=== PATIENT | female | born 1965 | race African-American/Black ===

== ENCOUNTER 2021-08-16 12:45 | Emergency (ER) | payer OTHER ==
[~2021-08-16] VITALS: Ht 152.4 cm; Wt 88.6 kg
[~2021-08-16 12:45] MED LIST: AMLO10TA4 PO; HYDR-2145 PO
[2021-08-16 14:11] VITALS: BP 171/93
[2021-08-16] MEDS ORDERED: FLUORESCEIN OPHTH TEST STRIP. OS ONE (17:45)
[2021-08-16] MEDS ORDERED: MINERAL OIL/PETROLATUM,WHITE OPHTH OINT 3.5GM TUBE. OU ONE (17:45)
[2021-08-16] MEDS ORDERED: PROPARACAINE 0.5% OPHTH SOLUTION 15ML BOTTLE. OS ONE (17:45)
--- NOTE | 2021-08-16 17:46 | PHYS DOC ---
Past Medical History Past Medical History: Hypertension (ROBER LYON) Past Surgical History: No Surgical History (ROBER LYON) Alcohol Use: None Drug Use: None (ROBER LYON) General Adult EDM: Chief Complaint: FACE PROBLEM HPI: HPI: Patient is a 56 year old hypertensive female who presents with left-sided facial weakness. Patient states that 5 days ago, her right eye began watering. Progressively, she has become more weak on the left side of her face. Patient is unable to fully close her eyelid or move the left side of her mouth. She denies any pain, paresthesias, visual field deficits, or other body involvement including upper extremities and lower extremities. (ROBER LYON) Review of Systems: Review of Systems: Constitutional: Denies fever, chills or generalized weakness Eyes: See HPI HENT: Denies ear pain, nasal congestion or sore throat Respiratory: Denies cough or shortness of breath Cardiovascular: Denies chest pain, palpitations or edema GI: Denies abdominal pain, nausea, vomiting, bloody stools or diarrhea : Denies dysuria or hematuria Musculoskeletal: Denies back pain or joint pain Integument: Denies rash or other skin lesion Neurologic: See HPI (ROBER LYON) Heart Score: C/O Chest Pain: No (ROBER LYON) Allergies: Allergies: Allergies Coded Allergies Type Severity Reaction Last Updated Verified No Known Drug Allergies 12/07/13 No (ROBER LYON) Physical Exam: PE: Constitutional: Well developed, well nourished, no acute distress, non-toxic appearance. HENT: Left-sided facial droop appreciated, muscle weakness appreciated from forehead extending inferiorly to perioral region, atraumatic, bilateral external ears without deformity or discharge, oropharynx moist, no oral exudates, tongue is midline without fasciculations, nose without deformity or discharge. Eyes: PERRLA, EOMI, conjunctiva normal, left eye with scleral injection and some minimal watery drainage, globe of left eye rotates upward and outward when patient attempts to close eyes. Fluorescein stain and [place] lamp exam does not reveal any corneal or scleral abrasions. Neck: Normal range of motion, no tenderness, supple, no stridor, symmetrical elevation and depression of hyoid bone on swallowing. Cardiovascular: Heart rate regular rhythm, no murmur. Lungs & Thorax: Bilateral breath sounds clear to auscultation. Skin: Warm, dry, no erythema, no rash. Neurologic: Alert and oriented x4, senior technical architect strength 5/5 bilaterally, steady and symmetrical gait, sensory function grossly intact, no focal deficits noted. (ROBER LYON) Current Patient Data: Vital Signs: Vital Signs Date Time Temp Pulse Resp B/P (MAP) Pulse Ox O2 Delivery O2 Flow Rate FiO2 08/16/21 14:11 97.8 70 12 171/93 (119) 99 Room Air 97.8 (ROBER LYON) Course & Med Decision Making: Course & Med Decision Making Pertinent Labs and Imaging studies reviewed. (See chart for details) Patient is a 56-year-old female with history of hypertension who presents with 5 days of left-sided facial weakness. History and presentation is consistent with facial nerve palsy. Patient presents with near complete paralysis at this point will be treated with artificial tears, prednisone taper as well as antiviral medication. Patient is given instruction to follow-up with both her primary care provider and ophthalmology. Patient understands and is agreeable to discharge plan. (ROBER LYON) Dragon Disclaimer: Dragon Disclaimer: This electronic medical record was generated, in whole or in part, using a voice recognition dictation system. (ROBER LYON) Departure Departure Impression: Primary Impression: Facial paralysis/[place] palsy Disposition: HOME / SELF CARE / HOMELESS Condition: STABLE Referrals: NO PCP (PCP) Patient Instructions: Reeves's Palsy-Brief Additional Instructions: Follow up with ophthalmology. Call to schedule an appointment. Take the medications as prescribed. You may also purchase over the counter artificial tears to keep the eye moist. Tape the eyelid down when you sleep to prevent further dryness/damage. Return to the department if you have any new symptoms or develop new ones. Scripts Valacyclovir Hcl (VALACYCLOVIR) 500 Mg Tablet 1 TAB PO BID for 7 Days, #14 TAB 0 Refills Prov: ROBER LYON 08/16/21 Prednisone (PREDNISONE) 20 Mg Tablet 1 TAB PO UD for 10 Days, #23 TAB Take 3 tablets by mouth once per day for days 1 through 5. Take 2.5 tablets by mouth once per day on day 6. Take 2 tablets by mouth once per day on day 7. Take 1.5 tablets by mouth once per day on day 8. Take 1 tablet by mouth once per day on day 9 and 10. Prov: ROBER LYON 08/16/21 Attending Signature Attending Signature I have reviewed the PA/MACHINE SHOP HELPER's note and plan of care. I was available for consu ltation as needed during the patient's visit in the emergency department. I agree with the clinical impression, plan, and disposition. (MICHELLE ADAMS DO) ROBER LYON Aug 16, 2021 17:46 MICHELLE ADAMS DO Aug 17, 2021 18:26
[2021-08-16] MEDS ORDERED: VALA500T9 PO (18:28)
[2021-08-16] MEDS ORDERED: PRED20TA PO (18:28)
== END 2021-08-16 18:35 | disposition home or self-care (01) ==
LOC: ER 12:45
DX: G51.0 Bell's palsy (principal); I10 Essential (primary) hypertension
CPT/HCPCS: 99284